=== PATIENT | male | born 2000 | race Hispanic/Latino ===

== ENCOUNTER 2022-10-22 06:30 | Emergency (ER) | payer SELFPAY ==
[2022-10-22] MEDS ORDERED: Acetaminophen 500 MG TAB ONE (07:19)
[2022-10-22] MEDS ORDERED: Boostrix 0.5 ML (Tdap) VIAL (>/=7 yrs of age) ONE (07:19)
[2022-10-22] MEDS ORDERED: Lidocaine Viscous Sol 2% 15 ml UD Cup ONE (07:44)
== END 2022-10-22 08:39 | disposition home or self-care (01) ==
LOC: EEVIPCON 06:30 → BURERS 06:30
DX: S01.511A Laceration without foreign body of lip, initial encounter (principal); S90.01XA Contusion of right ankle, initial encounter; S10.91XA Abrasion of unspecified part of neck, initial encounter; F10.129 Alcohol abuse with intoxication, unspecified; F17.210 Nicotine dependence, cigarettes, uncomplicated; Z23 Encounter for immunization; Y04.8XXA Assault by other bodily force, initial encounter
CPT/HCPCS: 12011; 70450; 70486; 90471; 90715